=== PATIENT | male | born 1990 | race Caucasian/White ===

== ENCOUNTER 2020-10-09 02:13 | Emergency (ER) | payer OTHER ==
[~2020-10-09] VITALS: Ht 180.3 cm; Wt 3.7 kg
[2020-10-09 05:00] VITALS: BP 152/67
[2020-10-09] MEDS ORDERED: SULF1TAB42 PO (05:06)
== END 2020-10-09 05:21 | disposition home or self-care (01) ==
LOC: EDH 02:13
DX: L72.3 Sebaceous cyst (principal)

== ENCOUNTER 2021-05-09 17:58 | Emergency (ER) | payer OTHER ==
[~2021-05-09] VITALS: Ht 175.3 cm; Wt 61.2 kg
[~2021-05-09 17:58] MED LIST: SULF1TAB42 PO
[2021-05-09 18:27] LABS: BASOPHILS % (AUTO) 1.1 % (0.0-5.0); EOSINOPHILS % (AUTO) 1.2 % (0.0-8.0); HEMATOCRIT 33.9 % (42-54); LYMPHOCYTES % (AUTO) 12.9 % (21.0-51.0); MEAN CORPUSCULAR HEMOGLOBIN 21.1 pg (27.0-33.0); MEAN CORPUSCULAR HGB CONC 29.8 g/dL (32.0-36.0); MEAN CORPUSCULAR VOLUME 70.8 fL (79-99); MONOCYTES % (AUTO) 11.1 % (3.0-13.0); NEUTROPHILS % (AUTO) 73.5 % (40.0-77.0); PLATELET COUNT (AUTO) 230 K/uL (130-400); RED BLOOD CELL COUNT(AUTO) 4.79 MIL/uL (4.50-6.20); RED CELL DISTRIBUTION WIDTH 19.5 % (11.0-15.5)
[2021-05-09 18:30] LABS: APPEARANCE,URINE Clear (CLEAR); BILIRUBIN,URINE Negative (NEGATIVE); COLOR,URINE Yellow (YELLOW); GLUCOSE, URINE (UA) Negative (NEGATIVE); KETONES,URINE Negative (NEGATIVE); LEUKOCYTE ESTERASE ,URINE Negative (NEGATIVE); NITRATE,URINE Negative (NEGATIVE); OCCULT BLOOD,URINE Negative (NEGATIVE); PH,URINE 5.5 (5.0-8.0); PROTEIN,URINE Negative (NEGATIVE); UROBILINOGEN,URINE 0.2 mg/dL (0.2-1.0)
[2021-05-09 18:36] LABS: CREATININE 0.7 mg/dL (0.5-1.5); POTASSIUM 3.8 mmol/L (3.5-5.1)
[2021-05-09 18:42] LABS: ALBUMIN 3.9 g/dL (3.5-5.0); BILIRUBIN,TOTAL 0.3 mg/dL (0.2-1.0); TOTAL PROTEIN, SERUM 8.9 g/dL (6.0-8.3)
[2021-05-09 19:14] VITALS: BP 113/73
[2021-05-09] MEDS ORDERED: CEPH500B PO (19:21)
[2021-05-09] MEDS ORDERED: SULF1TAB42 PO (19:21)
[2021-05-09] MEDS ORDERED: CEFTRIAXONE 1G VIAL IM ONE (19:30)
== END 2021-05-09 19:42 | disposition home or self-care (01) ==
LOC: EDH 17:58
DX: N49.2 Inflammatory disorders of scrotum (principal)
CPT/HCPCS: 36415; 76870; 80053; 81003; 85025; 96372; 99284; J0696

== ENCOUNTER 2022-12-17 21:52 | Emergency (ER) | payer OTHER ==
[~2022-12-17] VITALS: Ht 180.3 cm; Wt 56.7 kg
[2022-12-17] MEDS ORDERED: IBUPROFEN 600 MG TABLET PO ONE (22:00)
[2022-12-17 22:37] VITALS: BP 128/67; PULSE 68; RESP 18; O2SAT 98
== END 2022-12-17 22:43 | disposition home or self-care (01) ==
LOC: EDH 21:52
DX: S09.8XXA Other specified injuries of head, initial encounter (principal); F10.20 Alcohol dependence, uncomplicated; Z79.899 Other long term (current) drug therapy; Y08.89XA Assault by other specified means, initial encounter; Y93.89 Activity, other specified; Y92.89 Other specified places as the place of occurrence of the external cause; Y99.8 Other external cause status
CPT/HCPCS: 70486

== ENCOUNTER → 2022-12-17 | Emergency (ER) | payer OTHER ==
[~2022-12-17] MED LIST changes: +CEPH500B PO
== END ==
LOC: EDH 21:24
DX: R68.84 Jaw pain (principal); Z53.21 Procedure and treatment not carried out due to patient leaving prior to being seen by health care provider

== ENCOUNTER 2023-04-17 22:20 | Emergency (ER) | payer OTHER ==
[~2023-04-17] VITALS: Ht 180.3 cm; Wt 56.7 kg
[2023-04-17] MEDS: 0.9%NACL 1000ML 1,000 ML IV ONE (23:02)
[2023-04-17] MEDS: THIAMINE HCL 100 MG/ML 2ML VIAL IVP ONE ×2 (23:03→23:59)
[2023-04-18 00:29] LABS: BASOPHILS # (AUTO) 0.05 K/uL (0.00-0.20); BASOPHILS % (AUTO) 1.1 % (0.0-5.0); EOSINOPHILS # (AUTO) 0.03 K/uL (0.00-0.70); EOSINOPHILS % (AUTO) 0.6 % (0.0-8.0); HEMATOCRIT 31.5 % (42-54); IMMATURE GRANULOCYTE ABSOLUTE 0.02 K/uL (0-1); LYMPHOCYTES # (AUTO) 0.6 K/uL (1.0-4.8); LYMPHOCYTES % (AUTO) 13.2 % (21.0-51.0); MEAN CORPUSCULAR HEMOGLOBIN 29.3 pg (27.0-33.0); MEAN CORPUSCULAR HGB CONC 32.7 g/dL (32.0-36.0); MEAN CORPUSCULAR VOLUME 89.7 fL (79-99); MONOCYTES # (AUTO) 0.9 K/uL (0.1-1.0); NEUTROPHILS % (AUTO) 64.7 % (40.0-77.0); PLATELET COUNT (AUTO) 89 K/uL (130-400); RED BLOOD CELL COUNT(AUTO) 3.51 MIL/uL (4.50-6.20); RED CELL DISTRIBUTION WIDTH 17.2 % (11.0-15.5); WHITE BLOOD COUNT (AUTO) 4.7 K/uL (4.8-10.8)
[2023-04-18 00:40] LABS: CARBON DIOXIDE 22 mmol/L (21-32); CHLORIDE 97 mmol/L (101-111); CREATININE 0.8 mg/dL (0.5-1.5); GLOMERULAR FILTR. RATE CALC 120 mL/min (>90); GLUCOSE,RANDOM 73 mg/dL (70-105); POTASSIUM 4.1 mmol/L (3.5-5.1); SODIUM SERUM 134 mmol/L (136-145); UREA NITROGEN, BLOOD 20 mg/dL (7-18)
[2023-04-18] MEDS: LORAZEPAM 2 MG/ML 1 ML VIAL IVP ONE (00:46)
[2023-04-18 00:53] LABS: ALANINE AMINOTRANSFERASE 51 U/L (12-78); ALBUMIN 3.3 g/dL (3.5-5.0); ALCOHOL, BLOOD < 3 mg/dL (0-10); ASPARTATE AMINOTRANSFERASE 107 U/L (10-37); BILIRUBIN,TOTAL 1.2 mg/dL (0.2-1.0); TOTAL PROTEIN, SERUM 7.6 g/dL (6.0-8.3)
[2023-04-18 01:03] LABS: ACETAMINOPHEN < 1 mcg/mL (10-29)
[2023-04-18 01:04] LABS: CREATINE KINASE, TOTAL 631 U/L (21-232)
[2023-04-18] MEDS: 0.9%NACL 1000ML 1,000 ML IV ONE (01:15)
[2023-04-18] MEDS: ZIPRASIDONE MESYLATE 20 MG/VIAL IM SCH (01:46)
[2023-04-18 02:02] LABS: APPEARANCE,URINE CLEAR (CLEAR); BILIRUBIN,URINE NEGATIVE (NEGATIVE); COLOR,URINE YELLOW (YELLOW); GLUCOSE, URINE (UA) NEGATIVE (NEGATIVE); KETONES,URINE 60 mg/dL (NEGATIVE); LEUKOCYTE ESTERASE ,URINE NEGATIVE Leu/uL (NEGATIVE); NITRATE,URINE NEGATIVE (NEGATIVE); OCCULT BLOOD,URINE SMALL (NEGATIVE); PH,URINE 5.5 (5.0-8.0); PROTEIN,URINE 100 mg/dL (NEGATIVE); UROBILINOGEN,URINE 0.2 mg/dL (0.2-1.0)
[2023-04-18 02:10] LABS: AMPHET/METH SCREEN,URINE NEGATIVE (NEGATIVE); BARBITURATE SCREEN, URINE NEGATIVE (NEGATIVE); BENZODIAZEPINES SCREEN,URINE NEGATIVE (NEGATIVE); CANNABINOID SCREEN,URINE POSITIVE (NEGATIVE); COCAINE SCREEN,URINE NEGATIVE (NEGATIVE); OPIATE SCREEN,URINE NEGATIVE (NEGATIVE); PHENCYCLIDINE SCREEN,URINE NEGATIVE (NEGATIVE)
[2023-04-18 02:28] LABS: ADD UA MICROSCOPIC YES
[2023-04-18 02:29] LABS: BACTERIA,URINE FEW /HPF (None Seen); HYALINE CASTS, URINE 51-100 /LPF (0-1 /LPF); MUCUS,URINE RARE LPF (None Seen); SQUAMOUS EPITHELIAL CELL,UR RARE /HPF (0-2)
[2023-04-18 05:06] VITALS: BP 134/82; PULSE 84; RESP 18; O2SAT 100
== END 2023-04-18 05:26 | disposition home health service (06) ==
LOC: EDH 22:20
DX: R41.0 Disorientation, unspecified (principal); R44.1 Visual hallucinations; F10.20 Alcohol dependence, uncomplicated; Z79.899 Other long term (current) drug therapy
CPT/HCPCS: 99284; 96374; 96361 ×2; 82550; 80053; 80305; 85025; 36415; 93005; 81001; 96375; 96372; J7030 ×2; J3411; J2060; J3486; G0481

== ENCOUNTER 2024-07-17 18:22 | Emergency (ER) | payer BC ==
[2024-07-17] MEDS ORDERED: acetaMINOPHEN 325 MG TAB PO ONE (19:00)
--- NOTE | 2024-07-17 19:03 | ERN ---
ED Note History of Present Illness Stated Complaint: POSSIBLE CONCUSSION Time Seen by MD: 18:25 Time Seen by Midlevel: 18:25 Dictation: The patient is a 34-year-old male with no past medical history who presents to the emergency department with complaints of headache, right wrist pain, left lower leg pain, right knee pain after he accidentally tripped and fell yesterday while trying to go to the restroom in the middle of the night. Patient report he tripped because the lights were off causing him to fall forward and hit his frontal headache with the toilet. Patient denies any LOC, reports he has chronic vomiting due to his alcohol abuse. Denies any use of blood thinners. Allergies: Coded Allergies: No Known Drug Allergies (Unverified Allergy, Unknown, 10/09/20) Past Medical History Past Medical History: Alcoholism Surgical History: None Social History: Drugs, ETOH RN Note Reviewed/Agreed w/PFSH: Yes Review of System Dictation Constitutional: Negative for fever,chills, and weight loss Eyes: Negative for injury, pain,redness, and discharge ENT: Negative for injury,pain or swelling Cardiovascular: Negative for chest pain, palpitations, and edema Respiratory: Negative for shortness of breath, cough, and wheezing, Abdomen/GI: Negative for abdominal pain, nausea, vomiting, diarrhea, and constipation Back: Negative for injury and pain : Negative for injury, bleeding and discharge MS/Extremity: Negative for injury and deformity positive for right knee, left lower leg pain, right wrist pain Skin: Negative for rash, and discoloration positive for abrasion to left side of forehead, positive for bruising to left lower leg Neuro: Negative for weakness, numbness, tingling, and seizure positive for headache Psych: Negative for suicide ideation, homicidal ideation, and hallucinations Physical Exam Dictation Vital Signs reviewed General Appearance: Alert, oriented x 3, no acute distress, well developed, nourished. Head and Face: non-traumatic. Eyes: PERRL, pink conjunctivas, eyelid no trauma, anterior chamber with arcus senilis. Ears: Pinnas intact and no signs of trauma or erythema ear canals clear and no discharge TM no erythema Nose: No discharge, no bleeding. Oropharynx: Mouth normal, tongue pink. pharynx clear,no erythema, tonsils no exudates, no abscesses noted, mucous membrane moist Neck: Supple, non-tender, no thyromegaly, no masses, no JVD, no bruits Breast:Deferred Chest:No tenderness, no crepitus, no paradoxical movement, no retractions Lungs:Clear, well-ventilated, symmetric, no rales, no wheezing, no rhonchi, no stridor, good breath sounds bilaterally Heart: Regular rate, regular rhythm, no murmur, no gallops Vascular: no peripheral edema, Abdomen: Soft, positive bowel sounds, nondistended, no guarding, nontender, no rebound, no masses no hepatomegaly, no splenomegaly, no Sagastume's sign, no hernias. Rectal: Deferred Genital: Deferred Neurological: Normal speech, motor function intact, sensory function intact Musculoskeletal: Neck nontender, full range of motion, back nontender, full range of motion, Extremities: nontender, full range of motion , tenderness to left lower leg, tenderness to right wrist Skin: Color pink, dry, no turgor, no rash, no lacerations, no abrasions, no contusions. Bruising and hematoma to left lower leg, gap abrasion to left forehead Lymphatic: Deferred Results (Laboratory/Radiology) Labs Reviewed?: Yes ED Course ED Course Orders Procedure Category Date Status Time Ct Head/Brain W/O CT 07/17/24 Logged Contrast 18:50 Tibia/Fibula 2vws Lt RAD 07/17/24 Logged 18:50 Wrist Comp 3+Vws Rt RAD 07/17/24 Logged 18:50 Knee 3vws Rt RAD 07/17/24 Logged 18:50 Acetaminophen 325 Tab PHA 07/17/24 Complete (Tylenol 325mg Tab 19:00 Current Medications Medications (Trade) Dose Ordered Sig/Jeremiah Route PRN Reason Start Time Stop Time Status Last Admin Dose Admin Acetaminophen (TYLenol 325MG TAB) 650 mg ONCE ONCE PO 07/17/24 19:00 07/17/24 19:01 DC Medical Decision Making MDM The patient is a 34-year-old male with no past medical history who presents to the emergency department with complaints of headache, right wrist pain, left lower leg pain, right knee pain after he accidentally tripped and fell yesterday while trying to go to the restroom in the middle of the night. Patient report he tripped because the lights were off causing him to fall forward and hit his frontal headache with the toilet. Patient denies any LOC, reports he has chronic vomiting due to his alcohol abuse. Denies any use of blood thinners. Differential diagnosis: Concussion, contusion, right wrist sprain, right wrist fracture Patient eloped from ED without notifying staff and without triage. DX & DISP Disposition: AMA Departure Condition: Stable Referrals: SELF,REFERRAL (PCP) I have reviewed the case, and I agree with, Diagnosis and Plan MITCHELL [facility] Jul 17, 2024 19:03
--- NOTE | 2024-07-17 19:07 | NUR ---
called for pt in lobby. no response. pt not found in lobby.
--- NOTE | 2024-07-17 19:44 | NUR ---
PT NOT FOUND IN ER OR ER LOBBY.
== END 2024-07-17 19:44 | disposition left against medical advice (07) ==
LOC: EDH 18:22
DX: R51.9 Headache, unspecified (principal); M25.531 Pain in right wrist; M79.662 Pain in left lower leg; M25.561 Pain in right knee
CPT/HCPCS: 99281

== ENCOUNTER 2024-09-12 16:30 | Emergency (ER) | payer BC ==
[~2024-09-12] VITALS: Ht 180.3 cm; Wt 59.0 kg
[2024-09-12 17:13] LABS: IMMATURE GRANULOCYTE ABSOLUTE 0.01 K/uL (0-1); NUCLEATED RED BLOOD CELLS 0.0 % (0.0-0.19); PLATELET COUNT (AUTO) 116 K/uL (130-400); RED BLOOD CELL COUNT(AUTO) 3.73 MIL/uL (4.50-6.20); RED CELL DISTRIBUTION WIDTH 15.4 % (11.0-15.5); WHITE BLOOD COUNT (AUTO) 4.2 K/uL (4.8-10.8)
[2024-09-12 17:21] LABS: CREATININE 0.5 mg/dL (0.5-1.3); GLOMERULAR FILTR. RATE CALC 137 mL/min (>90); GLUCOSE,RANDOM 98 mg/dL (70-105); SODIUM SERUM 137 mmol/L (136-145); UREA NITROGEN, BLOOD 5 mg/dL (7-18)
[2024-09-12 17:29] LABS: AMPHET/METH SCREEN,URINE NEGATIVE (NEGATIVE); BARBITURATE SCREEN, URINE NEGATIVE (NEGATIVE); CANNABINOID SCREEN,URINE NEGATIVE (NEGATIVE); COCAINE SCREEN,URINE NEGATIVE (NEGATIVE)
[2024-09-12 17:42] LABS: ALCOHOL, BLOOD 511 mg/dL (0-10)
--- NOTE | 2024-09-12 18:08 | HMCIMG ---
EXAM: CR Chest, 1 View. CLINICAL HISTORY: cough COMPARISON: None provided. FINDINGS: LUNGS: The lungs show no infiltrate or other acute finding. PLEURAL SPACES: No evidence of pleural effusion or pneumothorax. MEDIASTINUM: The cardiomediastinal silhouette is within normal limits. BONES: No aggressive appearing osseous lesion seen. IMPRESSION: No acute cardiopulmonary pathology is evident. /[place]
--- NOTE | 2024-09-12 22:05 | ERN ---
ED Note History of Present Illness Stated Complaint: ETOH INTOXICATION Chief Complaint: Alcohol Intoxication Time Seen by MD: 16:36 Time Seen by Midlevel: 16:40 Dictation: 34-year-old male coming in via EMS for alcohol intoxication. Patient states he drinks every day since he can remember. In wants to join a rehab. Patient states he has been multiple times to [facility] for rehabilitation and always goes back to drinking. At this time patient is denying any homicidal suicidal thoughts. Does not have any complaints at this time. Allergies: Coded Allergies: No Known Drug Allergies (Unverified Allergy, Unknown, 10/09/20) Past Medical History Past Medical History: Other Additional Past Medical Hx: prostate and bowel issues Surgical History: None Social History: Drugs, ETOH Review of System Dictation Constitutional: Negative for fever,chills, and weight loss Eyes: Negative for injury, pain,redness, and discharge ENT: Negative for injury,pain or swelling Cardiovascular: Negative for chest pain, palpitations, and edema Respiratory: Negative for shortness of breath, cough, and wheezing, Abdomen/GI: Negative for abdominal pain, nausea, vomiting, diarrhea, and constipation Back: Negative for injury and pain : Negative for injury, bleeding and discharge MS/Extremity: Negative for injury and deformity Skin: Negative for rash, and discoloration Neuro: Negative for headache, weakness, numbness, tingling, and seizure Psych: Negative for suicide ideation, homicidal ideation, and hallucinations Review of Systems: was completed Initial Vital Sign VS Vital Signs Date Time Temp Pulse Resp B/P (MAP) Pulse Ox O2 Delivery O2 Flow Rate FiO2 09/12/24 16:36 97.9 90 16 136/83 96 Room Air* 0 21 Physical Exam Dictation General: awake, alert, NAD Head/Face: Normocephalic, atraumatic Eyes: PERRL, EOMI, vision at baseline ENT: oral cavity clear, TMs clear, no signs of infection Neck: Trachea midline, supple, no nuchal rigidity Cardiovascular: RRR, normal S1/S2, No MRGs, no JVD Respiratory: CTAB, no respiratory distress, No rales or wheezes Abdomen: Soft, non-tender, non-distended, normal bowel sounds, no guarding or rebound. Skin: Warm, dry, normal turgor, no rash MS/Extremity: Pulses equal, no cyanosis, neurovascular intact, FROM Neuro: COAx4, GCS 15, strength 5/5, CN 2-12 intact, normal cerebellar exam, normal gait, Psych: Normal behavior, mood, and affect normal Results (Laboratory/Radiology) Laboratory/Radiology Laboratory Tests Test 09/12/24 17:04 09/12/24 17:09 09/13/24 07:30 White Blood Count 4.2 K/uL (4.8-10.8) L Red Blood Count 3.73 MIL/uL (4.50-6.20) L Hemoglobin 12.1 g/dL (14.0-18.0) L Hematocrit 35.6 % (42-54) L Mean Corpuscular Volume 95.4 fL (79-99) Mean Corpuscular Hemoglobin 32.4 pg (27.0-33.0) Mean Corpuscular Hemoglobin Concent 34.0 g/dL (32.0-36.0) Red Cell Distribution Width 15.4 % (11.0-15.5) Platelet Count 116 K/uL (130-400) L Mean Platelet Volume 9.1 fL (7.5-10.5) Immature Granulocyte % (Auto) 0.2 % (0-1) Neutrophils (%) (Auto) 54.3 % (40.0-77.0) Lymphocytes (%) (Auto) 25.4 % (21.0-51.0) Monocytes (%) (Auto) 14.8 % (3.0-13.0) H Eosinophils (%) (Auto) 3.1 % (0.0-8.0) Basophils (%) (Auto) 2.2 % (0.0-5.0) Neutrophils # (Auto) 2.3 K/uL (1.8-7.7) Lymphocytes # (Auto) 1.1 K/uL (1.0-4.8) Monocytes # (Auto) 0.6 K/uL (0.1-1.0) Eosinophils # (Auto) 0.13 K/uL (0.00-0.70) Basophils # (Auto) 0.09 K/uL (0.00-0.20) Absolute Immature Granulocyte (auto 0.01 K/uL (0-1) Nucleated Red Blood Cells 0.0 % (0.0-0.19) Sodium Level 137 mmol/L (136-145) Potassium Level 4.1 mmol/L (3.5-5.1) Chloride Level 98 mmol/L (101-111) L Carbon Dioxide Level 30 mmol/L (21-32) Blood Urea Nitrogen 5 mg/dL (7-18) L Creatinine 0.5 mg/dL (0.5-1.3) Glomerular Filtration Rate Calc 137 mL/min (>90) Random Glucose 98 mg/dL (70-105) Total Calcium 8.9 mg/dL (8.5-10.1) Salicylates Level 6.9 mg/dL (2.8-20.0) Acetaminophen Level < 1 mcg/mL (10-29) L Serum Alcohol 511 mg/dL (0-10) *H 59 mg/dL (0-10) H Urine Opiates Screen NEGATIVE (NEGATIVE) Urine Barbiturates Screen NEGATIVE (NEGATIVE) Urine Phencyclidine Screen NEGATIVE (NEGATIVE) Urine Amphetamines Screen NEGATIVE (NEGATIVE) Urine Benzodiazepines Screen NEGATIVE (NEGATIVE) Urine Cocaine Screen NEGATIVE (NEGATIVE) Urine Marijuana (THC) Screen NEGATIVE (NEGATIVE) Labs Reviewed?: Yes ED Course ED Course Orders Procedure Category Date Status Time Cbc With Differential LAB 09/12/24 Complete 16:50 Basic Metabolic Panel LAB 09/12/24 Complete 16:50 Alcohol, Blood LAB 09/12/24 Complete 16:50 Chest 1vw RAD 09/12/24 Resulted 16:50 Salicylate LAB 09/12/24 Complete 16:50 Acetaminophen LAB 09/12/24 Complete 16:50 Drug Screen Urine LAB 09/12/24 Complete 16:50 Trazodone Hcl PHA 09/13/24 Complete (Desyrel/Oleptro) 02:30 Diazepam 5mg Tab PHA 09/13/24 Complete (Valium 5 Mg Tab) 06:30 Alcohol, Blood LAB 09/13/24 Complete 06:53 Use The [facility] CPOE 09/13/24 Transmitted Assmt. Tool 08:59 M.V.I. Iv [Adult] PHA 09/13/24 In Process (M.V.I. Iv [Adult])... 09:00 Current Medications Medications (Trade) Dose Ordered Sig/Jeremiha Route PRN Reason Start Time Stop Time Status Last Admin Dose Admin Diazepam (VALium 5 mg TAB) 10 mg ONCE ONCE PO 09/13/24 06:30 09/13/24 06:31 DC 09/13/24 06:15 Multivitamins/ Minerals 10 ml/ Folic Acid 1 mg/ Thiamine HCl 100 mg/Sodium Chloride 1,010 ml @ 0 mls/hr DAILY IV 09/13/24 09:00 09/15/24 09:01 Trazodone HCl (DesyREL/OlepTRO) 100 mg ONCE ONCE PO 09/13/24 02:30 09/13/24 02:31 DC 09/13/24 02:19 Vital Signs Date Time Temp Pulse Resp B/P (MAP) Pulse Ox O2 Delivery O2 Flow Rate FiO2 09/13/24 09:00 100 20 144/82 98 Room Air* 0 09/13/24 06:01 100.8 100 18 133/68 96 Room Air* 0 09/13/24 04:59 95 16 153/96 98 Room Air* 0 09/13/24 03:10 91 16 152/94 98 Room Air* 0 09/13/24 00:57 90 16 144/72 98 Room Air* 0 09/12/24 22:50 90 16 135/76 98 Room Air* 0 09/12/24 19:13 86 16 121/64 98 Room Air* 0 09/12/24 16:37 97.9 96 16 136/83 96 Room Air 09/12/24 16:36 97.9 90 16 136/83 96 Room Air* 0 21 Medical Decision Making MDM MDM: Differential diagnosis: Alcohol intoxication, psychiatric illness Rationale: Tests considered and ordered secondary to shared decision making include: Previous outside records reviewed: Old ER visits. Risk of complication and/or morbidity or mortality of patient management: None Medications-Per medication reconciliation Need for hospitalization: Patient does meet criteria for hospitalization. Need for emergency major/minor surgery: No There are no social concerns with this patient. Prescription drug management Prescriptions will include symptomatic care Patient's prior external medical records from other ER visits were reviewed by me as indicated. Prior testing and results from previous visits were reviewed. Prior tests were taken into account with medical decision making and resource utilization, independent historian/historians were used to obtain complete medical history. I independently interpreted the test that were performed, results were reviewed by me and considered findings on radiology if ordered. Medical management and examination interpretation discussions were had by me with other qualified healthcare professionals as indicated for the patient's care. While waiting to be admitted patient's family member came by and pick the patient. Patient eloped with the notifying me. He has been alcohol level had improved. DX & DISP Disposition: AMA Departure Impression: Primary Impression: Alcohol intoxication Additional Impressions: Aggression, Dehydration Condition: Stable Additional Instructions: Was advised by nursing staff the patient eloped with the family member. Referrals: SELF,REFERRAL (PCP) Time of Disposition: 09:33 RADHA MONROY NP Sep 12, 2024 22:05 ROX HIGUERA MD Sep 13, 2024 09:35
[2024-09-13 06:01] VITALS: TEMP 100.8
[2024-09-13] MEDS: diazePAM 5 MG TAB PO ONE (06:15)
--- NOTE | 2024-09-13 08:16 | NUR ---
SPOKE TO [facility] HOTLINE IN REGARDS TO PT REQUEST FOR ALCOHOL DETOX. PER HOTLINE WORKER, PT CAN CALL [facility] FOR SERVICES FOR ALCOHOL DETOX WED-WEDNESDAY 8-5 AT PHONE NUMBER .
--- NOTE | 2024-09-13 08:45 | NUR ---
SPOKE TO PTS FATHERSIVAN AT [phone]. PER FATHER, PT WAS DROPPED OFF FOR A 3PM APPOINTMENT FOR POSSIBLE ADMISSION FOR ALCOHOL DETOX. FATHER REPORTED, CAESAR CALLED 911 AND TOOK PT TO ER.
--- NOTE | 2024-09-13 08:46 | NUR ---
PER [facility] WORKER AT , PT WAS ATTEMPTED TO GET SCREENED AT [facility] FOR POSSIBLE ADMISSION FOR DETOX. PATIENT CARE SPECIALIST MADE PT AWARE THAT THERE WAS NO BED AVAILBLE AT "[facility]" FOR DETOX, BUT PT REMAINED ADAMANT ABOUT GOING THERE FOR DETOX. PT WAS OFFERED OTHER OUTCOMES, BUT PT DENIED WANTING TO GO TO ANY OTHER FACILITY. PT BECAME HOSTILE TOWARDS STAFF AND 911 WAS CALLED AND TAKEN TO OUR FACILITY.
--- NOTE | 2024-09-13 08:49 | NUR ---
PROMOTIONS DIRECTOR MERCEDEZ JANE CAN BE REACHED BY CALLING [facility] AT .
[2024-09-13 09:00] VITALS: BP 144/82; PULSE 100; RESP 20; O2SAT 98
[2024-09-13] MEDS ORDERED: M.V.I. IV [ADULT] 10 ML, FOLic ACID 5 MG/ML VIAL 1 MG, THIAMINE HCL 100 MG in 0.9%NACL ... IV SCH (09:00)
--- NOTE | 2024-09-13 09:30 | NUR ---
BROTHER BY TO SILVICULTURIST PT.
== END 2024-09-13 09:00 | disposition home or self-care (01) ==
LOC: EDH 16:30
DX: F10.129 Alcohol abuse with intoxication, unspecified (principal); E86.0 Dehydration; Y90.2 Blood alcohol level of 40-59 mg/100 ml
CPT/HCPCS: 99283; 71045; 80048; 80305; 85025; 36415 ×2; G0481; J3411; J3490; J7030